=== PATIENT | male | born 1995 | race Caucasian/White ===

== ENCOUNTER → 2019-10-13 05:44 | Day surgery (SDC) | payer BC ==
--- NOTE | 2019-09-30 07:45 | HP ---
CC: Dr. Farnsworth * HISTORY AND PHYSICAL: DATE OF PLANNED ADMISSION AND SURGERY: 10/13/19 HISTORY OF PRESENT ILLNESS: Mr. Foote is a 24-year-old white male who is admitted with recurrent episodes of left testicular torsion for bilateral internal fixation of testes. The patient's first episode of acute left testicular pain occurred about 4 months ago. The pain was severe and was radiating to the left lower quadrant, associated with nausea. It continued for several hours before he went to the emergency room in [place]. By the time he got to the emergency room, the pain had resolved. He had a scrotal ultrasound, which was normal. No additional work-up was done. Since that episode, he has had multiple episodes of acute left testicular pain occurring spontaneously and associated with abnormal position and orientation of the testicle noted on self-examination. The patient had one visit to the emergency room at [facility]; however, by the time he got to the emergency room again, the pain had resolved. Scrotal ultrasound was normal. The episodes of acute left testicular pain have persisted. I had seen the patient in my office about 6 weeks prior to this admission and the clinical diagnosis was intermittent testicular torsion and I instructed the patient on self-examination and on manual detorsion if the acute episodes occur. In fact, he had several similar episodes and had successfully manually detorsed the left testicle confirming that the episodes were in fact intermittent torsion. Because of the above history and the finding of a hypermobile left testis on physical examination, the patient is now admitted for bilateral internal fixation of the testes. PAST MEDICAL HISTORY AND SYSTEM REVIEW: He is in excellent health. He denies any cardiac or pulmonary diseases or symptoms. MEDICATIONS: He is on no chronic medications. ALLERGIES: Denies any allergies to medications. His history is otherwise negative. No history of any inguinal or scrotal trauma or surgery. FAMILY HISTORY: Negative. SOCIAL HISTORY: The patient is a nonsmoker. No alcohol intake. Occasional use of cannabis. He denies any history of neurological or mental health problems. PHYSICAL EXAMINATION GENERAL: He is a pleasant and healthy looking young man. VITAL SIGNS: Blood pressure 100/60, pulse of 60. LUNGS: Clear. HEART: Regular and rhythmic. No murmurs. ABDOMEN: Soft. No masses, no tenderness. No CVA tenderness. EXTERNAL GENITALIA: He is circumcised. There are no penile lesions. Both testes feel normal in size and consistency. There are no testicular masses noted. No hydrocele, varicocele, or inguinal hernias noted on either side. The left testis has an oblique axis and it is somewhat hypermobile. IMPRESSION: Recurrent episodes of intermittent left testicular torsion with successful manual self-detorsion resolving his pain. PLAN: Plan is for bilateral internal fixation of the testes. I discussed the operation in detail with the patient. Some of the potential complications including small incidence of infection and of hematoma were discussed. All his questions were answered. [id number]/[facility] #: [id number] JUNIE
[~2019-10-13 05:44] MED LIST: Acetaminophen TAB* 325 MG PO PRN; Buffered Lidocaine 1% SYRIN* 1 ML/SYRINGE INTRADERM ONE; Bupivacaine 0.5%* 50 ML MDV VIAL ONE; HYDROcodone/ACETAMIN 5-325 MG* 1 TAB ONE; HYDROcodone/ACETAMIN 5-325 MG* 1 TAB PO PRN; HYDROmorphone INJ1* 1 MG/ML SYRINGE IV PRN; Ibuprofen TAB* 600 MG ONE; Ibuprofen TAB* 600 MG PO PRN; Lactated Ringers 1000 ML Bag* 1,000 ML IV SCH; Lidocaine 1% INJ* 10 MG/ML 30 ML SDV ONE; Midazolam* 1 MG/ML 2 ML VIAL (2 MG) ONE; Naloxone* 0.4 MG/ML 1 ML VIAL IV PRN; Ondansetron INJ* 2 MG/ML VIAL IV PRN; Propofol* 10 MG/ML 20 ML BTL ONE; ceFAZolin 2 GM in NS PREMIX(*) 2 GM/100 ML BAG IVPB ONE; fentaNYL* 50 MCG/ML 2 ML VIAL (100 MCG VIAL) ONE
--- NOTE | 2019-10-13 11:20 | OP ---
CC: Dr. Farnsworth's office * DATE OF OPERATION: 10/13/19 - [facility] DATE OF : 89 SURGEON: Landry Abdullahi MD ANESTHESIOLOGIST: Dr. Barrera. ANESTHESIA: Spinal. PRE-OP DIAGNOSIS: Intermittent left testicular torsion. POST-OP DIAGNOSIS: Intermittent left testicular torsion. OPERATIVE PROCEDURE: Bilateral internal fixation of testes. INDICATION FOR PROCEDURE: Mr. Foote is a 24-year-old white male who, for the last 4 months, has been having intermittent episodes of acute left testicular pain. The episodes would last 2 to 3 hours and would resolve after he manipulates the left testicle. Scrotal ultrasound when the patient was not in acute pain was normal. 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 No other abnormalities were noted on the exam. With that history, the patient is admitted for bilateral internal fixation of testes. 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 There were no other abnormalities noted. The vas deferens and the epididymis and the testis all looked normal. There was no hydrocele or varicocele noted. The right testis looked normal. DESCRIPTION OF PROCEDURE: After successful spinal anesthesia, the patient was placed in the supine position and was prepped and draped for scrotal exploration. A vertical incision was carried over the anterior lower median raphe of the scrotum. The left scrotal compartment was entered and the tunica vaginalis was opened and the left testis was delivered through the incision. The same was performed on the right side. The testes were inspected. The intrascrotal septum was held between Allis clamps. The left testis was held in a vertical axis making sure there was no twisting of the cord. Two fixation sutures of 4-0 Prolene were then taken on the medial aspect of the left testis in the tunica albuginea. These sutures were taken through the intrascrotal septum and back into the left scrotal cavity. Similar fixation sutures were placed in the right testis. Both testes were then replaced in their respective scrotal cavities. A third fixation suture was taken between the lateral aspect of the each testis and the adjacent tunica vaginalis. There was good hemostasis. The fixation sutures were all tied. The tunica vaginalis was closed on each side using a running suture of 4-0 Vicryl. A total of 8 cc of 0.5% Marcaine without epinephrine were used to infiltrate the scrotal incision. The incision was then closed using interrupted sutures of 4-0 Vicryl between the dartos muscle and the intrascrotal septum, and the skin was closed using 4-0 chromic interrupted sutures. The patient tolerated the procedure well and left the operating room in good condition. There was no blood loss and there were no specimens and all the counts were correct. [id number]/[facility] #: [id number] [facility] HEALTHJocelyn
[2019-10-13 11:21] VITALS: BP 114/80
== END | disposition home or self-care (01) ==
LOC: OR 05:44
PROVIDERS: ATTEND Urology
PROC: 0VSC0ZZ Reposition Bilateral Testes, Open Approach (ICD-10-PCS; principal; 2019-10-13 07:30)
DX: N44.00 Torsion of testis, unspecified (principal); N50.812 Left testicular pain
CPT/HCPCS: A9270-GY; J0690; J2250; J2704; J3010; J3490